=== PATIENT | female | born 2000 | race Two or more races ===

== ENCOUNTER 2022-07-08 12:28 | Emergency (ER) | payer MEDICAID ==
[~2022-07-08] VITALS: Ht 165.1 cm; Wt 105.7 kg
[2022-07-08 12:44] VITALS: BP 117/69
[2022-07-08] MEDS ORDERED: ACETAMINOPHEN 500 MG TAB PO ONE (14:15)
[2022-07-08] MEDS ORDERED: DexAMETHasone SOD PHOS 10MG/1ML VIAL INJ IM ONE (14:15)
[2022-07-08] MEDS ORDERED: IBUP800T26 PO (16:53)
[2022-07-08] MEDS ORDERED: VALA1TAB34 PO (16:53)
[2022-07-08] MEDS ORDERED: ACET-1158 PO (16:53)
[2022-07-08] MEDS ORDERED: TAMIFLU PO (16:53)
== END 2022-07-08 17:01 | disposition home or self-care (01) ==
LOC: ER 12:28
DX: J10.1 Influenza due to other identified influenza virus with other respiratory manifestations (principal)
CPT/HCPCS: 87070; 87804; 87880; 96372; 99283; J1100

== ENCOUNTER 2024-04-15 00:39 | Emergency (ER) | payer MEDICAID, OTHER ==
[~2024-04-15] VITALS: Ht 165.1 cm; Wt 113.5 kg
[~2024-04-15 00:39] MED LIST: ACET500T58 PO; IBUP-1455 PO; TAMIFLU PO; VALA1TAB34 PO
[2024-04-15 01:13] VITALS: BP 103/61; PULSE 114; RESP 14; O2SAT 94
[2024-04-15] MEDS: ACETAMINOPHEN 325 MG TAB PO ONE (01:21)
[2024-04-15 02:08] LABS: COVID19 ANTIGEN SOFIA FIA NEGATIVE (NEGATIVE); Rapid Influenza A Negative (Negative); Rapid Influenza B Negative (Negative)
[2024-04-15 02:21] VITALS: TEMP 98.8
== END 2024-04-15 04:54 | disposition home or self-care (01) ==
LOC: ER 00:39
DX: B34.9 Viral infection, unspecified (principal); J35.01 Chronic tonsillitis; Z20.822 Contact with and (suspected) exposure to COVID-19; Z79.899 Other long term (current) drug therapy
CPT/HCPCS: 36415; 87426; 87804

== ENCOUNTER 2024-04-16 10:36 | Emergency (ER) | payer OTHER ==
[~2024-04-16] VITALS: Ht 165.1 cm; Wt 114.7 kg
[2024-04-16 10:57] VITALS: BP 129/69; PULSE 115; RESP 16; O2SAT 98
[2024-04-16] MEDS: DexAMETHasone SOD PHOS 4 MG/1ML SDV INJ IM ONE (11:15)
[2024-04-16] MEDS: PENICILLIN G BENZ 1,200,000 UNITS/2 ML SYRG IM ONE (11:16)
== END 2024-04-16 12:46 | disposition home or self-care (01) ==
LOC: ER 10:43
DX: J03.80 Acute tonsillitis due to other specified organisms (principal); Z79.624 Long term (current) use of inhibitors of nucleotide synthesis
CPT/HCPCS: 96372; 99284; J0561; J1100

== ENCOUNTER 2025-04-21 12:00 | Emergency (ER) | payer OTHER ==
[~2025-04-21] VITALS: Ht 165.1 cm; Wt 106.2 kg
--- NOTE | 2025-04-21 13:10 | ED.PDOC ---
Eye-HPI HPI Comments 24-year-old female presents to the ER with a chief complaint of a sore throat. Patient reports on having on and off cough associated with a sore throat since yesterday. Social history of occasional alcohol use. Denies chills, fever, N/V/D, SOB, CP. No other associated symptoms, modifiers, recent injuries or sick contacts present at this time. Chief Complaint: Sore Throat Time Seen by MD: 13:00 Primary Care Provider: THUY Reviewed Notes: Nurses Notes, Medications, Allergies Allergies: Coded Allergies: NO KNOWN ALLERGIES (Unverified , 07/08/22) Home Meds Active Scripts Ibuprofen Micronized (Ibuprofen) 800 Mg Tab, 800 MG PO TIDP PRN, #20 TAB Prov:MALKA HARRIS [facility] 07/08/22 Valacyclovir HCl (Valacyclovir HCl) 1 Gm Tab, 1 GM PO BID, #40 TAB Prov:MALKA HARRIS [facility] 07/08/22 Acetaminophen (Acetaminophen) 500 Mg Tab, 500 MG PO Q4HPRN PRN, #30 TAB Prov:MALKA HARRIS [facility] 07/08/22 Oseltamivir Phosphate (Tamiflu) 75 Mg Cap, 75 MG PO BID for 5 Days, #10 CAP Prov:MALKA HARRIS [facility] 07/08/22 Information Source: Patient Mode of Arrival: Ambulatory Timing: Hours Duration: Since onset, Hours Prehospital treatment: None Quality: Pain Lids: Normal Conjunctiva: Normal Cornea: Normal Pupils: Normal EOM: Normal Fundus: Normal Slit lamp exam: Normal Anterior chamber: Normal Mouth: Normal ENT Ear Exam: Normal, Normal, Normal Nose: Normal Sinuses: Normal Oropharynx: Normal Onset: Spontaneous Throat Exposed to: None History of: None Associated signs and symptoms: Sore Throat Past Medical History PAST MEDICAL HISTORY: Denies Surgical History: Denies all surgeries PLANT MACHINIST 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 Family History Family History: Reviewed,noncontributory to illness, Unknown Social History Smoker: Non-Smoker Alcohol: Occasionally Drugs: Denies Drug Use Lives In: Home Constitutional: denies: chills, diaphoresis, fatigue, fever, malaise, sweats, weakness, others EENTM: reports: throat pain, throat swelling; denies: blurred vision, double vision, ear bleeding, ear discharge, ear drainage, ear pain, ear ringing, eye pain, eye redness, hearing loss, mouth pain, mouth swelling, nasal discharge, nose bleeding, nose congestion, nose pain, photophobia, tearing, voice changes, others Respiratory: reports: cough; denies: hemoptysis, orthopnea, SOB at rest, shortness of breath, SOB with excertion, stridor, wheezing, others Cardiovascular: denies: chest pain, dizzy spells, diaphoresis, Dyspnea on exertion, edema, irregular heart beat, left arm pain, lightheadedness, palpitations, PND, syncope, others Gastrointestinal: denies: abdomen distended, abdominal pain, blood streaked bowels, constipated, diarrhea, dysphagia, difficulty swallowing, hematemesis, melena, nausea, poor appetite, poor fluid intake, rectal bleeding, rectal pain, vomiting, others Genitourinary: denies: abnormal vagina bleeding, burning, dyspareunia, dysuria, flank pain, frequency, hematuria, incontinence, pain, , vagina discharge , urgency, others Neurological: denies: dizziness, fainting, headache, left sided numbness, left sided weakness, numbness, paresthesia, pre-existing deficit, right sided numbness, right sided weakness, seizure, speech problems, tingling, tremors, weakness, others Musculoskeletal: denies: back pain, gout, joint pain, joint swelling, muscle pain, muscle stiffness, neck pain, others Integumetry: denies: bruises, change in color, change in hair/nails, dryness, laceration, lesions, lumps, rash, wounds, others Allergic/Immunocompromised: denies: Difficulty Healing, Frequent Infections, Hives, Itching, others Hematologic/Lymphatic: denies: anemia, blood clots, easy bleeding, easy bruising, swollen glands, others Endocrine: denies: excessive hunger, excessive sweating, excessive thirst, excessive urination, flushing, intolerance to cold, intolerance to heat, unexplained weight gain, unexplained weight loss, others Psychiatric: denies: anxiety, bipolar disorder, depression, hopeless, panic di sorder, schizophrenia, sleepless, suicidal, others All Other Systems: Reviewed and Negative Physical Exam General Appearance: No Apparent Distress, Normal HEENT: Normal ENT Inspection, PERRL/EOMI, Pharyngeal Erythema, Pharynx Normal, TMs Normal, Tonsillar Exudate Neck: Full Range of Motion, Non-Tender, Normal, Normal Inspection Respiratory: Chest Non-Tender, Lungs Clear, No Accessory Muscle Use, No Respiratory Distress, Normal Breath Sounds Cardiovascular: No Edema, No JVD, No Murmur, No Gallop, Normal Peripheral Pulses, Regular Rate/Rhythm Breast Exam: Deferred Gastrointestinal: No Organomegaly, Non Tender, No Pulsatile Mass, Normal Bowel Sounds, Soft Genitalia: Deferred Pelvic: Deferred Rectal: Deferred Extremities: No calf tenderness, Normal capillary refill, Normal inspection, Normal range of motion, Non-tender, No pedal edema Musculoskeletal : Apperance: Normal Neurologic: Alert, substance abuse services director II-XII nml as Tested, No Motor Deficits, Normal Affect, Normal Mood, No Sensory Deficits Cerebellar Function: Normal Reflexes: Normal Skin: Dry, Normal Color, Warm Lymphatic: No Adenopathy Was a procedure done? Was a procedure done?: No EENT DIFF Eye: N/A Ear: N/A Nose: N/A Mouth: N/A Sore Throat: Pharyngitis, Other (Tonsillitis) X-Ray, Labs, Meds, VS Vital Signs Date Time Temp Pulse Resp B/P (MAP) Pulse Ox O2 Delivery O2 Flow Rate FiO2 04/21/25 12:01 98.1 82 18 109/77 96 98.1 X-Ray, Labs, Meds, VS Comment Patient came to the [facility] complaining of a sore throat no fever for the past two days can not hardly swallow Patient has tonsillitis and will be treated and discharged Time of 1ST Reevaluation: 13:30 Reevaluation 1ST: Unchanged Time of 2ND Reevaluation: 13:26 Reevaluation 2ND: Unchanged Consultation: PCP Patient Education/Counseling: Diagnosis, Treatment, Prognosis, Need For Follow Up Family Education/Counseling: Diagnosis, Treatment, Prognosis, Need For Follow Up, No Family Present SEPSIS Sepsis Screen Date sepsis recognized/suspect: Apr 21, 2025 Time Sepsis recognized/suspect: 1205 Recent Procedure: No On Antibiotic Therapy: No Respiratory Rate >20: No Heart Rate >90: No Temp<36 C (96.8 F) or >38.3 C: No SBP <90 or MAP <65 mmHG: No New Acute Mental Status Change: No Is the patient on CPAP, BIPAP,: No Vital Signs Date Time Temp Pulse Resp B/P (MAP) Pulse Ox O2 Delivery O2 Flow Rate FiO2 04/21/25 12:01 98.1 82 18 109/77 96 98.1 Departure 1 Departure Time of Disposition: 13:26 Impression: Primary Impression: Acute tonsillitis Qualified Codes: J03.90 - Acute tonsillitis, unspecified Disposition: HOME / SELF CARE / HOMELESS Condition: Fair Additional Instructions: Gargle With salt and water and peroxide e-Prescriptions Promethazine HCl (Promethazine Hydrochlorid) 6.25 Mg/5 Ml Lexi 12.5 MG PO TID, #300 ML Prov: JANEE ADKINS MD 04/21/25 Naproxen (Naproxen) 375 Mg Tab 375 MG PO TID for 10 Days, #30 TAB Prov: JANEE ADKINS MD 04/21/25 Azithromycin (Zithromax) 500 Mg Tab 1 TAB PO DAILY for 5 Days, #5 TAB Prov: JANEE ADKINS MD 04/21/25 Discharged With: Self Critical Care Note Critical Care Time?: No Stability Stability form required: No Heart Score Heart Score: Heart Score Response (Comments) Value History N/A 0 EKG N/A 0 Age N/A 0 Risk Factors No known risk factors 0 Troponin N/A 0 Total 0 I personally scribed for JANEE ADKINS MD ([email or web address]) on 04/21/25 at 13:10. Electronically submitted by Hal Mejia ([email or web address]). JANEE ADKINS MD Apr 21, 2025 13:10
[2025-04-21] MEDS ORDERED: PROM5SOL PO (13:30)
[2025-04-21] MEDS ORDERED: AZIT500T PO (13:30)
[2025-04-21] MEDS ORDERED: NAPR-957 PO (13:30)
[2025-04-21 14:44] VITALS: BP 129/72; PULSE 62; RESP 18; TEMP 98.2; O2SAT 98
== END 2025-04-21 14:49 | disposition home or self-care (01) ==
LOC: ER 12:00
DX: J03.90 Acute tonsillitis, unspecified (principal)